=== PATIENT | female | born 1970 | race Caucasian/White ===

== ENCOUNTER → 2016-09-24 | Outpatient (CLI) | payer BC ==
--- NOTE | 2016-09-24 18:27 | Diagnostic Imaging Report ---
EXAMINATION: Three views of the right ribs. INDICATION: Right rib pain. FINDINGS: No fracture is seen. The right lung is clear. IMPRESSION: No right rib fracture is seen. Dictated by: Dictated on workstation # [id number]
--- NOTE | 2016-09-24 18:27 | Diagnostic Imaging Report ---
EXAMINATION: PA and lateral views of the chest. INDICATION: Cough. Right chest pain. FINDINGS: The lungs are hyperinflated but clear. The heart size is normal. No effusion or pneumothorax. The mediastinum and aye appear unremarkable. IMPRESSION: Hyperinflated clear lungs. Dictated by: Dictated on workstation # [id number]
== END ==
LOC: RAD 14:55
PROVIDERS: ATTEND Internal Medicine
DX: R05 Cough (principal); R07.82 Intercostal pain
CPT/HCPCS: 71020; 71100